=== PATIENT | male | born 1990 | race Caucasian/White ===

== ENCOUNTER 2019-06-29 23:36 | Emergency (ER) | payer SELFPAY ==
[~2019-06-29] VITALS: Ht 190.5 cm; Wt 116.5 kg
[2019-06-30] MEDS ORDERED: LIDOCAINE-MPF 1%, 5ML ONE (00:12)
[2019-06-30] MEDS ORDERED: NEOSPORIN OINT. PKT 1 PACKET ONE (00:13)
[2019-06-30] MEDS ORDERED: LIDOCAINE 1%, 10ML INFIL ONE (00:30)
[2019-06-30] MEDS ORDERED: HYDROcodone/APAP 5/325 TABLET ONE (00:41)
[2019-06-30 00:55] VITALS: BP 139/74
[2019-06-30] MEDS ORDERED: HYDROcodone/APAP 5/325 TABLET PO ONE (01:00)
== END 2019-06-30 00:56 | disposition home or self-care (01) ==
LOC: ED 23:45
DX: L03.032 Cellulitis of left toe (principal); L60.0 Ingrowing nail; F17.200 Nicotine dependence, unspecified, uncomplicated
CPT/HCPCS: 11730; 99284

== ENCOUNTER 2019-08-05 20:41 | Emergency (ER) | payer SELFPAY ==
[~2019-08-05] VITALS: Ht 190.5 cm; Wt 117.0 kg
--- NOTE | 2019-08-05 21:19 | NUR ---
PT CAME IN CO OF CHEST PRESSURE, TIGHTNESS, AND PAIN. ALSO CO OF FEELING DIZZY A SOB. PT ADMITS TO HX OF HTN AND MIGRAINES. EKG HAS BEEN COMPLETED. PROVIDER IS BEDSIDE. PT CONNECTED TO MONITORING EQUIPMENT.
--- NOTE | 2019-08-05 21:49 | NUR ---
PT TO CT AT THIS TIME
[2019-08-05 22:04] LABS: ANION GAP 8 mmol/L (5-15); CALCIUM 8.6 mg/dL (8.5-10.1); CHLORIDE 106 mmol/L (98-107); CREATININE 1.03 mg/dL (0.7-1.3)
[2019-08-05 22:05] LABS: ALANINE AMINOTRANSFERASE 45 U/L (12-78)
[2019-08-05 22:07] LABS: BASOPHILS # (AUTO) 0.02 x10^3/uL (0-0.1); BASOPHILS % (AUTO) 0 % (0-1); EOSINOPHILS # (AUTO) 0.21 x10^3/uL (0-0.4); EOSINOPHILS % (AUTO) 3 % (1-7); LYMPHOCYTES # (AUTO) 2.11 x10^3/uL (1-3.4); LYMPHOCYTES % (AUTO) 32 % (22-44); MD NO; MEAN CORPUSCULAR HEMOGLOBIN 30.1 pg (27.5-34.5); MEAN CORPUSCULAR HGB CONC 34.3 g/dL (33.2-36.2); MEAN CORPUSCULAR VOLUME 87.6 fL (81-97); MONOCYTES # (AUTO) 0.63 x10^3/uL (0.2-0.8); MONOCYTES % (AUTO) 10 % (2-9); NEUTROPHILS # (AUTO) 3.69 x10^3/uL (1.8-6.8); NEUTROPHILS % (AUTO) 55 % (42-75); PLATELET COUNT 201 x10^3/uL (130-400); RED BLOOD COUNT 5.52 x10^6/uL (4.38-5.82); RED CELL DISTRIBUTION WIDTH 12.9 % (9.4-14.8)
[2019-08-05 22:09] LABS: ALKALINE PHOSPHATASE 59 U/L (45-117); BILIRUBIN,TOTAL 0.5 mg/dL (0.2-1.0); TOTAL PROTEIN 7.9 g/dL (6.4-8.2); TROPONIN I < 0.015 ng/mL (0.000-0.045)
[2019-08-05] MEDS ORDERED: OMNIPAQUE 350 MG/ML, 100ML BOTTLE ONE (22:11)
--- NOTE | 2019-08-05 22:27 | NUR ---
REPORT FROM RJ TALBERT.
[2019-08-05 23:13] VITALS: BP 111/69
--- NOTE | 2019-08-05 23:13 | NUR ---
PT RESTING ON GURNEY, NO ACUTE DISTRESS. VSS.
== END 2019-08-06 00:04 | disposition home or self-care (01) ==
LOC: ED 22:12
DX: G44.219 Episodic tension-type headache, not intractable (principal); R55 Syncope and collapse; I10 Essential (primary) hypertension; R07.9 Chest pain, unspecified; R94.31 Abnormal electrocardiogram [ECG] [EKG]; Z87.891 Personal history of nicotine dependence
CPT/HCPCS: 36415; 70450; 70496; 70498; 71045; 80053; 84484; 85025; 93005; 99285; Q9967